=== PATIENT | male | born 1975 | race Caucasian/White ===

== ENCOUNTER 2019-10-22 07:46 | Emergency (ER) | payer OTHER ==
[2019-10-22 07:56] VITALS: BP 105/73; PULSE 94; BMI 24.0
[2019-10-22] MEDS ORDERED: KETOROLAC TROMETHAMINE 30 MG/1 ML VIAL IM ONE (08:38)
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
[2019-10-22] MEDS ORDERED: KETOROLAC TROMETHAMINE 30 MG/1 ML VIAL ONE (08:46)
== END 2019-10-22 09:41 | disposition home or self-care (01) ==
LOC: JERFT 07:46
PROC: 3E0233Z Introduction of Anti-inflammatory into Muscle, Percutaneous Approach (ICD-10-PCS; principal; 2019-10-22)
DX: Z04.1 Encounter for examination and observation following transport accident (principal); M54.5 Low back pain; V43.52XA Car driver injured in collision with other type car in traffic accident, initial encounter; Y92.412 Parkway as the place of occurrence of the external cause; Y93.89 Activity, other specified; Y99.8 Other external cause status
CPT/HCPCS: 99284-25